=== PATIENT | female | born 1975 | race Caucasian/White ===

== ENCOUNTER 2019-04-06 13:54 | Observation (INO) ==
[2019-04-06] MEDS ORDERED: SODIUM CHLORIDE 0.9% 500 ML IV STA (14:36)
[2019-04-06] MEDS ORDERED: ONDANSETRON 4 MG/2 ML VIAL IV STA (14:36)
[2019-04-06] MEDS ORDERED: ALBUTEROL/IPRATROPIUM 3 ML NEB RESP TX PRN (15:30)
[2019-04-06] MEDS ORDERED: BISACODYL 5 MG TABLET PO PRN (15:30)
[2019-04-06] MEDS ORDERED: KETOROLAC 15 MG/1 ML VIAL IV PRN (15:30)
[2019-04-06] MEDS ORDERED: ACETAMINOPHEN 325 MG TABLET PO PRN (15:30)
[2019-04-06] MEDS ORDERED: ONDANSETRON 4 MG/2 ML VIAL IV PRN (15:30)
[2019-04-06] MEDS ORDERED: METOPROLOL TARTRATE 5 MG/5 ML VIAL IV PRN (15:34)
[2019-04-06] MEDS ORDERED: BUPIVACAINE MPF 0.25% 30 ML VIAL ONE (15:39)
[2019-04-06] MEDS ORDERED: TISSUE ADHESIVE 1 EACH APPLICATOR TOP ONE (15:39)
[2019-04-06] MEDS ORDERED: LIDOCAINE 1%/EPI INJ 20 ML VIAL ONE (15:39)
[2019-04-06 16:02] LABS: Apearance,Urine CLEAR (Clear); Bilirubin,Urine Negative (Negative); Blood, Urine Moderate mg/dL (Negative); Glucose,Urine (UA) Negative (Negative); Ketones,Urine Negative (Negative); Nitrite,Urine Negative (Negative); Protein,Urine Negative; RBC,Urine 8 /HPF (0-4); Squamous Epithelial Cell,Urine Occasional /HPF (0-10); Urine Color Straw (Yellow); Urine Specific Gravity 1.056 (1.001-1.035); Urine Urobilinogen < 2.0 EU/DL (0.2-1.0); WBC,Urine 1 /HPF (0-6)
[2019-04-06 16:12] LABS: Calcium 9.2 MG/DL (8.5-10.1); Osmolality,Calculated 268.2 MOS/KG (273-304)
[2019-04-06] MEDS ORDERED: SCOPOLAMINE 1.5 MG PATCH TRANSDERM ONE (16:26)
[2019-04-06] MEDS: cefOXitin 2,000 MG in SYRINGE 1 EACH IV SCH ×2 (16:35→23:06)
[2019-04-06] MEDS ORDERED: ACETAMINOPHEN 1,000 MG/100 ML VIAL IV ONE ×2 (16:56→17:34)
[2019-04-06] MEDS ORDERED: fentaNYL 100 MCG/2 ML VIAL ONE (17:33)
[2019-04-06] MEDS ORDERED: propofoL 200 MG/20 ML VIAL IV ONE (17:33)
[2019-04-06] MEDS ORDERED: SEVOFLURANE 1 UNIT/15 MINUTE INH ONE (17:33)
[2019-04-06] MEDS ORDERED: LIDOCAINE 2% 5 ML VIAL ONE (17:33)
[2019-04-06] MEDS ORDERED: MIDAZOLAM 2 MG/2 ML VIAL ONE (17:33)
[2019-04-06] MEDS ORDERED: DEXAMETHASONE 4 MG/1 ML VIAL ONE (17:34)
[2019-04-06] MEDS ORDERED: ONDANSETRON 4 MG/2 ML VIAL ONE (17:34)
[2019-04-06] MEDS ORDERED: NEOSTIGMINE 10 MG/10 ML VIAL ONE (17:34)
[2019-04-06] MEDS ORDERED: SUCCINYLCHOLINE 200 MG/10 ML VIAL ONE (17:34)
[2019-04-06] MEDS ORDERED: GLYCOPYRROLATE 0.4 MG/2 ML VIAL ONE (17:34)
[2019-04-06] MEDS ORDERED: ROCURONIUM 100 MG/10 ML VIAL IV ONE (17:34)
[2019-04-06] MEDS ORDERED: KETOROLAC 30 MG/1 ML VIAL ONE (17:34)
[2019-04-06] MEDS ORDERED: LACTATED RINGERS 1,000 ML IV ONE (17:34)
[2019-04-06] MEDS: HYDROmorphone 2 MG/1 ML VIAL IV PRN ×5 (17:35→21:21)
[2019-04-06] MEDS ORDERED: TOPIRAMATE 25 MG TABLET PO SCH (21:00)
[2019-04-06] MEDS: diphenhydrAMINE 50 MG/1 ML VIAL IV PRN (21:21)
[2019-04-06] MEDS: MAGNESIUM CHLORIDE 64 MG TABLET PO SCH (21:22)
[2019-04-06] MEDS: carvediloL 3.125 MG TABLET PO SCH (21:22)
[2019-04-06] MEDS: LACTATED RINGERS 1,000 ML IV SCH (23:06)
[2019-04-07] MEDS: HYDROmorphone 2 MG/1 ML VIAL IV PRN ×2 (02:43→08:39)
[2019-04-07] MEDS: LACTATED RINGERS 1,000 ML IV SCH ×2 (03:19→08:42)
[2019-04-07] MEDS: diphenhydrAMINE 50 MG/1 ML VIAL IV PRN ×2 (03:19→11:36)
[2019-04-07 04:54] LABS: Basophils % 0.2 % (0.0-0.8); Hemoglobin 12.4 GM/DL (12.0-16.0); Immature Granulocytes % 0.3 %; Immature Granulocytes Absolute 0.02 #; Lymphocytes # 0.6 10*3/uL (1.4-4.0); Lymphocytes % 10.4 % (21.3-54.2); Mean Corpuscular HGB Conc 31.8 GM/DL (32-36); Mean Corpuscular Volume 90.3 FL (87-102); Mean Platelet Volume 10.2 FL (9.6-12.0); Monocytes % 6.8 % (1.7-12.7); Neutrophils % 82.3 % (38.7-73.9); Platelet Count 272 T/CUMM (130-400); Red Blood Count 4.32 MC/CUMM (3.8-5.5); Red Cell Distribution Width 12.2 % (9.3-17.3); White Blood Count 6.2 T/CUMM (4-12)
[2019-04-07 05:10] LABS: Calcium 8.2 MG/DL (8.5-10.1); Osmolality,Calculated 273.8 MOS/KG (273-304)
[2019-04-07] MEDS: cefOXitin 2,000 MG in SYRINGE 1 EACH IV SCH ×2 (06:26→11:23)
[2019-04-07] MEDS: MAGNESIUM CHLORIDE 64 MG TABLET PO SCH (08:38)
[2019-04-07 08:39] VITALS: BP 109/64
[2019-04-07] MEDS: carvediloL 3.125 MG TABLET PO SCH (08:39)
[2019-04-07] MEDS ORDERED: MELOXICAM 7.5 MG TABLET PO SCH (09:00)
[2019-04-07] MEDS ORDERED: HYDROXYCHLOROQUINE 200 MG TABLET PO SCH ×2 (09:00→21:00)
[2019-04-07] MEDS ORDERED: PANTOPRAZOLE 40 MG TABLET PO SCH (09:00)
[2019-04-07] MEDS ORDERED: DULoxetine 30 MG CAPSULE PO SCH (09:00)
[2019-04-07] MEDS ORDERED: MAGNESIUM CHLORIDE 64 MG TABLET PO SCH (21:00)
[2019-04-07] MEDS ORDERED: TOPIRAMATE 25 MG TABLET PO SCH (21:00)
[2019-04-07] MEDS ORDERED: carvediloL 3.125 MG TABLET PO SCH (21:00)
[2019-04-08] MEDS ORDERED: DULoxetine 30 MG CAPSULE PO SCH (09:00)
== END 2019-04-07 13:10 | disposition home or self-care (01) ==
LOC: N.ED 13:54 → N.EDINP 13:54 → N.3E 16:25
PROVIDERS: ADMIT Surgery; ATTEND Surgery

== ENCOUNTER 2020-02-23 15:02 | Inpatient (IN) ==
[2020-02-23 17:30] LABS: Basophils % 0.2 % (0.0-0.8); Hematocrit 42.5 VOL% (35.7-47.0); Hemoglobin 14.3 GM/DL (12.0-16.0); Immature Granulocytes % 1.1 %; Immature Granulocytes Absolute 0.06 #; Lymphocytes # 0.5 10*3/uL (1.4-4.0); Lymphocytes % 9.8 % (21.3-54.2); Mean Corpuscular HGB Conc 33.6 GM/DL (32-36); Mean Corpuscular Volume 84.8 FL (87-102); Mean Platelet Volume 11.3 FL (9.6-12.0); Monocytes % 3.3 % (1.7-12.7); Neutrophils % 85.6 % (38.7-73.9); Platelet Count 224 T/CUMM (130-400); Red Blood Count 5.01 MC/CUMM (3.8-5.5); Red Cell Distribution Width 12.4 % (9.3-17.3); White Blood Count 5.5 T/CUMM (4-12)
[2020-02-23 17:47] LABS: Alanine Aminotransferase 80 U/L (13-56); Albumin 3.3 G/DL (3.4-5.0); Alkaline Phosphatase 100 U/L (45-117); Aspartate Amino Transferase 43 U/L (0-37); Bilirubin,Total < 0.39 MG/DL (0.2-1.0); Blood Urea Nitrogen 12 MG/DL (7-18); Calcium 8.5 MG/DL (8.5-10.1); Estimated Glom Filtration Rate 106 ML/MIN; Glucose 99 MG/DL (74-106); Osmolality,Calculated 267.2 MOS/KG (273-304); Total Protein 7.5 G/DL (6.4-8.3)
[2020-02-23] MEDS ORDERED: cefTRIAXone 1,000 MG in SODIUM CHLORIDE 0.9% 100 ML IV STA (17:53)
[2020-02-23] MEDS ORDERED: AZITHROMYCIN INJ 500 MG in SODIUM CHLORIDE 0.9% 250 ML IV STA (17:53)
[2020-02-23] MEDS ORDERED: ACETAMINOPHEN 325 MG TABLET PO PRN (18:09)
[2020-02-23] MEDS ORDERED: DEXTROSE 50% 25 GM/50 ML VIAL IV PRN (18:09)
[2020-02-23] MEDS ORDERED: ONDANSETRON 4 MG/2 ML VIAL IV PRN (18:09)
[2020-02-23] MEDS ORDERED: GLUCAGON 1 MG VIAL IM PRN (18:09)
[2020-02-23] MEDS ORDERED: MELATONIN 3 MG TABLET PO PRN (18:09)
[2020-02-23 18:38] LABS: Ferritin 123.9 ng/ml (8-252)
[2020-02-23] MEDS ORDERED: ACETAMINOPHEN 500 MG TABLET PO STA (19:24)
[2020-02-23] MEDS ORDERED: ACETAMINOPHEN 500 MG TABLET ONE (19:25)
[2020-02-23] MEDS: FAMOTIDINE 20 MG TABLET PO SCH (22:22)
[2020-02-23] MEDS: ASCORBIC ACID 500 MG TABLET PO SCH (22:23)
[2020-02-23] MEDS: ENOXAPARIN 40 MG/0.4 ML SYRINGE SUBCUT SCH (22:23)
[2020-02-24] MEDS ORDERED: PANTOPRAZOLE 40 MG TABLET PO SCH (09:00)
[2020-02-24] MEDS: DEXAMETHASONE 4 MG/1 ML VIAL IV SCH (09:04)
[2020-02-24] MEDS: ZINC GLUCONATE 50 MG TABLET PO SCH (09:04)
[2020-02-24] MEDS: CETIRIZINE 10 MG TABLET PO SCH (09:04)
[2020-02-24] MEDS: ASCORBIC ACID 500 MG TABLET PO SCH ×2 (09:04→21:40)
[2020-02-24] MEDS: CHOLECALCIFEROL 1,000 UNIT TABLET PO SCH (09:04)
[2020-02-24] MEDS: MONTELUKAST 10 MG TABLET PO SCH (09:04)
[2020-02-24] MEDS: FAMOTIDINE 20 MG TABLET PO SCH ×2 (09:04→21:40)
[2020-02-24] MEDS ORDERED: ALBUTEROL/IPRATROPIUM 3 ML NEB RESP TX PRN (09:23)
[2020-02-24 09:54] LABS: Basophils % 0.3 % (0.0-0.8); Hematocrit 39.7 VOL% (35.7-47.0); Hemoglobin 13.5 GM/DL (12.0-16.0); Immature Granulocytes % 1.5 %; Immature Granulocytes Absolute 0.05 #; Lymphocytes # 0.8 10*3/uL (1.4-4.0); Lymphocytes % 24.2 % (21.3-54.2); Mean Corpuscular Volume 84.5 FL (87-102); Mean Platelet Volume 9.6 FL (9.6-12.0); Monocytes % 6.1 % (1.7-12.7); Neutrophils % 67.9 % (38.7-73.9); Platelet Count 231 T/CUMM (130-400); Red Cell Distribution Width 12.3 % (9.3-17.3); White Blood Count 3.3 T/CUMM (4-12)
[2020-02-24 10:13] LABS: Albumin 2.8 G/DL (3.4-5.0); Bilirubin,Total 0.5 MG/DL (0.2-1.0); Calcium 8.6 MG/DL (8.5-10.1); Ferritin 125.3 ng/ml (8-252); Osmolality,Calculated 269.1 MOS/KG (273-304)
[2020-02-24 10:48] LABS: Band Neutrophils 2 % (0-10); Lymphocytes 16 % (20-55); Segmented Neutrophils 76 % (50-85); Total Cells Counted 100
[2020-02-24 10:49] LABS: Hypochromasia 1+; Microcytosis Slight; Platelet Estimate Normal
[2020-02-24] MEDS: POTASSIUM CHLORIDE 20 MEQ TABLET PO PRN ×2 (12:46→17:26)
[2020-02-24] MEDS: ALBUTEROL/IPRATROPIUM 3 ML NEB RESP TX SCH (13:45)
[2020-02-24] MEDS: cefTRIAXone 1,000 MG in SYRINGE 1 EACH IV SCH (19:05)
[2020-02-24] MEDS ORDERED: AZITHROMYCIN INJ 500 MG in SODIUM CHLORIDE 0.9% 250 ML IV SCH (21:00)
[2020-02-24] MEDS: carvediloL 3.125 MG TABLET PO SCH (21:40)
[2020-02-24] MEDS: ENOXAPARIN 40 MG/0.4 ML SYRINGE SUBCUT SCH (21:40)
[2020-02-25] MEDS: ALBUTEROL/IPRATROPIUM 3 ML NEB RESP TX SCH ×5 (03:05→19:58)
[2020-02-25 06:37] LABS: Basophils % 0.3 % (0.0-0.8); Hematocrit 38.7 VOL% (35.7-47.0); Immature Granulocytes % 1.1 %; Immature Granulocytes Absolute 0.04 #; Lymphocytes # 1.6 10*3/uL (1.4-4.0); Lymphocytes % 43.4 % (21.3-54.2); Mean Corpuscular HGB Conc 33.6 GM/DL (32-36); Mean Corpuscular Volume 85.2 FL (87-102); Mean Platelet Volume 10.1 FL (9.6-12.0); Monocytes % 12.9 % (1.7-12.7); Neutrophils % 42.3 % (38.7-73.9); Platelet Count 280 T/CUMM (130-400); Red Blood Count 4.54 MC/CUMM (3.8-5.5); Red Cell Distribution Width 12.3 % (9.3-17.3); White Blood Count 3.6 T/CUMM (4-12)
[2020-02-25 07:17] LABS: Alanine Aminotransferase 49 U/L (13-56); Albumin 2.8 G/DL (3.4-5.0); Alkaline Phosphatase 83 U/L (45-117); Aspartate Amino Transferase 16 U/L (0-37); Bilirubin,Total < 0.39 MG/DL (0.2-1.0); Blood Urea Nitrogen 13 MG/DL (7-18); Calcium 9.1 MG/DL (8.5-10.1); Estimated Glom Filtration Rate 91 ML/MIN; Glucose 116 MG/DL (74-106); Osmolality,Calculated 273.8 MOS/KG (273-304); Total Protein 6.9 G/DL (6.4-8.3)
[2020-02-25 08:25] LABS: Band Neutrophils 1 % (0-10); Lymphocytes 39 % (20-55); Platelet Estimate Normal; Segmented Neutrophils 45 % (50-85); Total Cells Counted 100
[2020-02-25] MEDS: MONTELUKAST 10 MG TABLET PO SCH (09:22)
[2020-02-25] MEDS: CHOLECALCIFEROL 1,000 UNIT TABLET PO SCH (09:22)
[2020-02-25] MEDS: ZINC GLUCONATE 50 MG TABLET PO SCH (09:23)
[2020-02-25] MEDS: FAMOTIDINE 20 MG TABLET PO SCH ×2 (09:23→21:25)
[2020-02-25] MEDS: ASCORBIC ACID 500 MG TABLET PO SCH ×2 (09:23→21:25)
[2020-02-25] MEDS: DULoxetine 30 MG CAPSULE PO SCH (09:23)
[2020-02-25] MEDS: carvediloL 3.125 MG TABLET PO SCH ×2 (09:23→17:11)
[2020-02-25] MEDS: CETIRIZINE 10 MG TABLET PO SCH (09:24)
[2020-02-25] MEDS: DEXAMETHASONE 4 MG/1 ML VIAL IV SCH (09:24)
[2020-02-25] MEDS: cefTRIAXone 1,000 MG in SYRINGE 1 EACH IV SCH (17:34)
[2020-02-25] MEDS: HYDROXYCHLOROQUINE 200 MG TABLET PO SCH (21:24)
[2020-02-25] MEDS: ENOXAPARIN 40 MG/0.4 ML SYRINGE SUBCUT SCH (21:25)
[2020-02-25] MEDS: DOXYCYCLINE HYCLATE 100 MG CAPSULE PO SCH (21:25)
[2020-02-26] MEDS: ALBUTEROL/IPRATROPIUM 3 ML NEB RESP TX SCH ×4 (00:56→20:06)
[2020-02-26 06:50] LABS: Basophils % 0.2 % (0.0-0.8); Hemoglobin 12.8 GM/DL (12.0-16.0); Immature Granulocytes % 1.6 %; Lymphocytes # 2.4 10*3/uL (1.4-4.0); Lymphocytes % 40.1 % (21.3-54.2); Mean Corpuscular HGB Conc 33.7 GM/DL (32-36); Mean Corpuscular Volume 85.6 FL (87-102); Mean Platelet Volume 10.5 FL (9.6-12.0); Monocytes % 8.4 % (1.7-12.7); Neutrophils % 49.7 % (38.7-73.9); Platelet Count 335 T/CUMM (130-400); Red Blood Count 4.44 MC/CUMM (3.8-5.5); Red Cell Distribution Width 12.4 % (9.3-17.3); White Blood Count 6.1 T/CUMM (4-12)
[2020-02-26 07:25] LABS: Alanine Aminotransferase 49 U/L (13-56); Albumin 2.8 G/DL (3.4-5.0); Alkaline Phosphatase 79 U/L (45-117); Aspartate Amino Transferase 21 U/L (0-37); Bilirubin,Total < 0.39 MG/DL (0.2-1.0); Blood Urea Nitrogen 18 MG/DL (7-18); Estimated Glom Filtration Rate 91 ML/MIN; Glucose 113 MG/DL (74-106); Osmolality,Calculated 277.7 MOS/KG (273-304); Total Protein 6.9 G/DL (6.4-8.3)
[2020-02-26] MEDS: carvediloL 3.125 MG TABLET PO SCH ×2 (08:14→16:51)
[2020-02-26] MEDS: MONTELUKAST 10 MG TABLET PO SCH (08:14)
[2020-02-26] MEDS: CHOLECALCIFEROL 1,000 UNIT TABLET PO SCH (08:14)
[2020-02-26] MEDS: ASCORBIC ACID 500 MG TABLET PO SCH ×2 (08:14→21:00)
[2020-02-26] MEDS: DULoxetine 30 MG CAPSULE PO SCH (08:14)
[2020-02-26] MEDS: ZINC GLUCONATE 50 MG TABLET PO SCH (08:14)
[2020-02-26] MEDS: DOXYCYCLINE HYCLATE 100 MG CAPSULE PO SCH ×2 (08:15→20:59)
[2020-02-26] MEDS: FAMOTIDINE 20 MG TABLET PO SCH ×2 (08:15→21:00)
[2020-02-26] MEDS: DEXAMETHASONE 4 MG/1 ML VIAL IV SCH (08:15)
[2020-02-26] MEDS: CETIRIZINE 10 MG TABLET PO SCH (08:15)
[2020-02-26] MEDS: HYDROXYCHLOROQUINE 200 MG TABLET PO SCH ×2 (08:15→20:59)
[2020-02-26 08:32] LABS: Lymphocytes 50 % (20-55); Segmented Neutrophils 50 % (50-85); Total Cells Counted 100
[2020-02-26 08:33] LABS: Platelet Estimate Decreased; Polychromasia Few
[2020-02-26] MEDS ORDERED: AZITHROMYCIN 250 MG TABLET PO SCH (09:00)
[2020-02-26] MEDS: cefTRIAXone 1,000 MG in SYRINGE 1 EACH IV SCH (17:41)
[2020-02-26] MEDS: ENOXAPARIN 40 MG/0.4 ML SYRINGE SUBCUT SCH (21:00)
[2020-02-27] MEDS: ALBUTEROL/IPRATROPIUM 3 ML NEB RESP TX SCH ×3 (00:22→13:30)
[2020-02-27 06:50] LABS: Basophils % 0.4 % (0.0-0.8); Eosinophils % 0.1 % (0.00-10.9); Hematocrit 38.2 VOL% (35.7-47.0); Hemoglobin 12.8 GM/DL (12.0-16.0); Immature Granulocytes % 2.6 %; Immature Granulocytes Absolute 0.19 #; Lymphocytes # 2.8 10*3/uL (1.4-4.0); Lymphocytes % 37.6 % (21.3-54.2); Mean Corpuscular HGB Conc 33.5 GM/DL (32-36); Mean Platelet Volume 9.4 FL (9.6-12.0); Monocytes % 7.9 % (1.7-12.7); Neutrophils % 51.4 % (38.7-73.9); Platelet Count 380 T/CUMM (130-400); Red Blood Count 4.44 MC/CUMM (3.8-5.5); Red Cell Distribution Width 12.3 % (9.3-17.3); White Blood Count 7.4 T/CUMM (4-12)
[2020-02-27 07:12] LABS: Albumin 2.9 G/DL (3.4-5.0); Bilirubin,Total 0.5 MG/DL (0.2-1.0); Calcium 8.5 MG/DL (8.5-10.1); Total Protein 6.8 G/DL (6.4-8.3)
[2020-02-27 07:26] LABS: Atypical Lymphocytes Few; Hypochromasia 1+; Lymphocytes 31 % (20-55); Microcytosis 1+; Platelet Estimate Adequate; Segmented Neutrophils 65 % (50-85); Total Cells Counted 100
[2020-02-27] MEDS: CETIRIZINE 10 MG TABLET PO SCH (08:57)
[2020-02-27] MEDS: ASCORBIC ACID 500 MG TABLET PO SCH (08:57)
[2020-02-27] MEDS: DULoxetine 30 MG CAPSULE PO SCH (08:57)
[2020-02-27] MEDS: DEXAMETHASONE 4 MG/1 ML VIAL IV SCH (08:58)
[2020-02-27] MEDS: HYDROXYCHLOROQUINE 200 MG TABLET PO SCH (08:58)
[2020-02-27] MEDS: MONTELUKAST 10 MG TABLET PO SCH (08:58)
[2020-02-27] MEDS: FAMOTIDINE 20 MG TABLET PO SCH (08:58)
[2020-02-27] MEDS: ZINC GLUCONATE 50 MG TABLET PO SCH (08:58)
[2020-02-27] MEDS: carvediloL 3.125 MG TABLET PO SCH (08:58)
[2020-02-27] MEDS: CHOLECALCIFEROL 1,000 UNIT TABLET PO SCH (08:58)
[2020-02-27] MEDS: DOXYCYCLINE HYCLATE 100 MG CAPSULE PO SCH (08:58)
[2020-02-27 16:45] VITALS: BP 113/68
== END 2020-02-27 18:26 | disposition home or self-care (01) | DRG 194 ==
LOC: N.ED 15:02 → N.EDINP 15:02 → N.2E 21:05 → SUATTDRO 02-24 13:36 → N.5E 02-24 18:12
PROVIDERS: ADMIT Internal Medicine; ATTEND Internal Medicine